=== PATIENT | female | born 1995 | race Hispanic/Latino ===

== ENCOUNTER → 2018-12-10 | Outpatient (CLI) | payer BC, OTHER ==
--- NOTE | 2018-12-10 17:29 | Diagnostic Imaging Report ---
Cervical spine, 5 views. History: Neck pain. Discussion: The cervical spine is visualized on the lateral view from C1 through the top of T1. There is normal lordotic curvature. There is no evidence of fracture, subluxation, or posterior splaying. The intervertebral disc spaces are normal. The neuroforamina are patent bilaterally. The prevertebral soft tissues are within normal limits. IMPRESSION: Normal cervical spine. Signed by: Sharath Conteh on 12/10/2018 5:25 PM
== END ==
LOC: RAD 15:45
PROVIDERS: ATTEND Family Medicine
DX: M54.2 Cervicalgia (principal)
CPT/HCPCS: 72050